=== PATIENT | female | born 1950 | race Asian ===

== ENCOUNTER 2020-07-07 21:22 | Emergency (ER) | payer MEDICARE, OTHER ==
[~2020-07-07] VITALS: Ht 157.5 cm; Wt 68.9 kg
[2020-07-08] MEDS ORDERED: TETANUS-DIPTH-ACEL PERTUSSIS 0.5ML SYR Tdap IM ONE (00:30)
[2020-07-08] MEDS ORDERED: CIPROFLOXACIN HCL 500 MG TAB PO ONE (00:30)
[2020-07-08] MEDS ORDERED: AMOXICILLIN/CLAVUL 875 MG TAB PO ONE (00:30)
[2020-07-08 01:17] VITALS: BP 153/59
== END 2020-07-08 02:56 | disposition home or self-care (01) ==
LOC: ER 21:23
DX: S91.331A Puncture wound without foreign body, right foot, initial encounter (principal); S91.351A Open bite, right foot, initial encounter; Z23 Encounter for immunization; W54.0XXA Bitten by dog, initial encounter; Y93.89 Activity, other specified; Y92.89 Other specified places as the place of occurrence of the external cause; Y99.8 Other external cause status
CPT/HCPCS: 73630; 90471; 90715

== ENCOUNTER 2023-06-06 13:27 | Emergency (ER) | payer OTHER ==
[~2023-06-06] VITALS: Ht 160 cm; Wt 71.1 kg
[2023-06-06] MEDS: AMOXICILLIN/CLAVUL 875 MG TAB PO ONE (16:05)
[2023-06-06] MEDS: NEOMYCIN-BACITRACIN-POLYM UNITDOSE PKG TOP OINT TOP ONE (16:05)
[2023-06-06] MEDS: TETANUS-DIPTH-ACEL PERTUSSIS 0.5ML SYR Tdap IM ONE (16:06)
[2023-06-06] MEDS ORDERED: AUG875T PO (17:05)
[2023-06-06] MEDS ORDERED: MUPI2OIN2 EX (17:05)
[2023-06-06 17:28] VITALS: BP 143/77; PULSE 72; RESP 18; TEMP 97.5; O2SAT 99
== END 2023-06-06 17:27 | disposition home or self-care (01) ==
LOC: ER 13:27
DX: S61.412A Laceration without foreign body of left hand, initial encounter (principal); S61.452A Open bite of left hand, initial encounter; Z79.2 Long term (current) use of antibiotics; Z79.899 Other long term (current) drug therapy; W54.0XXA Bitten by dog, initial encounter; Y93.89 Activity, other specified; Y92.89 Other specified places as the place of occurrence of the external cause; Y99.8 Other external cause status
CPT/HCPCS: 12001; 73130; 90471; 90715; 99283; J2001

== ENCOUNTER 2023-06-13 08:54 | Emergency (ER) | payer OTHER ==
[~2023-06-13] VITALS: Ht 160 cm; Wt 72.7 kg
[~2023-06-13 08:54] MED LIST: AUG875T PO; MUPI2OIN2 EX
[2023-06-13 09:06] VITALS: BP 139/48; PULSE 68; RESP 17; O2SAT 97
[2023-06-13] MEDS: NEOMYCIN-BACITRACIN-POLYM UNITDOSE PKG TOP OINT TOP ONE (10:18)
== END 2023-06-13 10:22 | disposition home or self-care (01) ==
LOC: ER 08:54
DX: S61.412D Laceration without foreign body of left hand, subsequent encounter (principal); Z48.02 Encounter for removal of sutures; X58.XXXD Exposure to other specified factors, subsequent encounter